=== PATIENT | male | born 1985 | race Hispanic/Latino ===

== ENCOUNTER 2019-04-01 17:25 | Emergency (ER) | payer OTHER, SELFPAY ==
[~2019-04-01 17:25] MED LIST: Iopamidol-370 76% 500 ML 1 ML ONE
[2019-04-01] MEDS ORDERED: Adacel (T-DAP) 0.5 ML SYRINGE ONE (17:38)
[2019-04-01 17:59] LABS: #Basophils 0.1 thou/uL (0.0-0.2); #Eosinphils 0.2 thou/uL (0.0-0.7); #Lymphocytes 1.7 thou/uL (1.20-3.40); #Monocytes 0.7 thou/uL (0.11-0.59); #Neutrophils 10.9 thou/uL (1.40-6.50); %Basophils 0.5 % (0.0-1.0); %Eosinophils 1.5 % (0.0-10.0); %Lymphocytes 12.8 % (21.0-51.0); %Monocytes 4.8 % (0.0-10.0); %Neutrophils 80.5 % (42.0-75.0); Hemoglobin 14.4 g/dL (14.0-18.0); Mean Corpuscular Hemoglobin 29.6 pg (27.0-31.0); Mean Platelet Volume 8.9 fL (7.4-10.4); Platelet Count 170 thou/uL (130-400); RBC Distribution Width 12.3 % (11.5-14.5); Red Blood Cell (RBC) Count 4.87 mill/uL (4.70-6.10); White Blood Cell (WBC) Count 13.6 thou/uL (4.8-10.8)
[2019-04-01 18:07] LABS: INR-International Normal Ratio 1.1; PTT 29.6 SEC (22.9-36.1); Prothrombin Time 14.1 SEC (12.0-14.7)
[2019-04-01 18:20] LABS: ALT (SGPT) 22 U/L (8-55); AST (SGOT) 20 U/L (5-34); Albumin 3.8 g/dL (3.5-5.0); Alkaline Phosphatase 122 U/L (40-110); Anion Gap 13 mmol/L (10-20); BUN (Urea Nitrogen) 17 mg/dL (8.9-20.6); Bilirubin, Total 0.6 mg/dL (0.2-1.2); Calc. Creatinine Clearance 0 mL/min (70-130); Calcium 8.6 mg/dL (7.8-10.44); Carbon Dioxide 23 mmol/L (22-29); Chloride 109 mmol/L (98-107); Estimated GFR-MDRD Greater than 90; Globulin 2.9 g/dL (2.4-3.5); Glucose 148 mg/dL (70-105); Potassium 3.8 mmol/L (3.5-5.1); Protein, Total 6.7 g/dL (6.0-8.3); Sodium 141 mmol/L (136-145)
[2019-04-01] MEDS ORDERED: Fentanyl 100 MCG/2 ML VIAL ONE (18:30)
--- NOTE | 2019-04-01 19:04 | CT ---
EXAM: CT angiogram left forearm with IV contrast and three-dimensional reconstructions PROVIDED CLINICAL HISTORY: Laceration COMPARISON: None FINDINGS: There is cutaneous irregularity and foci of gas within the subcutaneous adipose layer and forearm mus culature involving the radial volar forearm approximately 9 cm proximal to the radiocarpal joint. There is noncircumscribed fluid density present within the subcutaneous adipose layer in this region. These findings immediately overlie superficially the radial artery. There is no evidence for active contrast extravasation. There is no irregularity of the radial artery or evidence for occlusio n or transection. There is normal contrast opacification of the arterial structures of the right forearm throughout their visualized course. The osseous structures demonstrate no evidence for an acute process. IMPRESSION: No evidence for active extravasation or CT evidence for radial arterial injury.
== END 2019-04-01 19:28 | disposition home or self-care (01) ==
LOC: ERS 17:25
DX: S51.812A Laceration without foreign body of left forearm, initial encounter (principal); F17.210 Nicotine dependence, cigarettes, uncomplicated; Z23 Encounter for immunization; W26.9XXA Contact with unspecified sharp object(s), initial encounter
CPT/HCPCS: 36415; 80053; 85025; 85610; 85730; 90471; 90715; 96374; J3010

== ENCOUNTER 2020-04-16 20:56 | Observation (INO) | payer SELFPAY ==
[2020-04-16] MEDS ORDERED: traMADol HCl 50 MG TAB PO PRN (23:13)
[2020-04-16] MEDS ORDERED: Promethazine HCl 25 MG/ML VIAL IM PRN ×2 (23:13)
[2020-04-16] MEDS ORDERED: Cyclobenzaprine 10 MG TAB PO PRN (23:13)
[2020-04-16] MEDS ORDERED: Ondansetron PF 4 MG/2 ML Vial IVP PRN (23:13)
[2020-04-16] MEDS ORDERED: Ondansetron ODT 4 MG TAB PO PRN (23:13)
[2020-04-16] MEDS ORDERED: hydrALAZINE 20 MG/ML VIAL SLOW IVP PRN (23:13)
[2020-04-16] MEDS ORDERED: Morphine 2 MG/ML VIAL SLOW IVP PRN (23:13)
[2020-04-16] MEDS ORDERED: Dextrose 5% in Water 1,000 ML IV PRN (23:13)
[2020-04-16] MEDS ORDERED: Dextrose 50% Abboject 50 ML SYRINGE SLOW IVP PRN (23:13)
[2020-04-16 23:17] VITALS: BMI 24.9
[2020-04-16] MEDS ORDERED: Sodium Chloride 0.9% 1,000 ML IV SCH (23:55)
[2020-04-16] MEDS: CEFAZOLIN 1 GM in Sodium Chloride 0.9% 100 ML IVPB SCH (23:55)
[2020-04-16] MEDS: traMADol HCl 50 MG TAB PO PRN (23:56)
[2020-04-16] MEDS: Acetaminophen 325 MG TAB PO SCH (23:56)
[2020-04-17 04:23] LABS: SARS-CoV-2 MS2 Positive; SARS-CoV-2 N Gene Negative; SARS-CoV-2 S Gene Negative; SARS-CoV-2 by NAA Not Detected (NotDetected); SARS-CoV-2 orf1ab Negative
[2020-04-17] MEDS: Acetaminophen 325 MG TAB PO SCH ×4 (05:37→23:01)
[2020-04-17] MEDS: traMADol HCl 50 MG TAB PO PRN ×2 (05:38→20:24)
--- NOTE | 2020-04-17 05:39 | HP ---
REQUESTING PHYSICIAN: Dr. Webber. ATTENDING SURGEON: Dr. Henry. CONSULTATION: Orthopedics, Dr. Oropeza. HISTORY OF PRESENT ILLNESS: The patient is a 35-year-old man, who was working with an angle blanchard grinder operator when it caught and then kicked back and struck him in his left thigh. The patient went to the emergency department in [place], where he underwent evaluation and examination, was noted to have a laceration to his left medial thigh. Physician there felt that this was a contaminated wound and spoke with Dr. Oropeza, who agreed to evaluate the patient here at our facility. The patient was brought to our facility and it was determined that he would be admitted for observation and evaluated by Orthopedics in the morning for possible formal irrigation and debridement in the operating room. The patient had his tetanus updated and was given Ancef in the emergency department there. ALLERGIES: NONE. CURRENT MEDICATIONS: None. PAST MEDICAL HISTORY: None. SURGICAL HISTORY: Heart surgery as a . SOCIAL HISTORY: The patient drinks rarely. Denies drug use. Smokes approximately one pack of cigarettes per day. He is employed as a manual machinist. REVIEW OF SYSTEMS: A 10-point review of systems is negative as otherwise stated. PHYSICAL EXAMINATION: VITAL SIGNS: Blood pressure 129/87, heart rate 80, respirations 16, oxygen saturation 98% on room air, and temperature 98.3. GENERAL: The patient is resting comfortably in bed. He was asleep when I entered the room but awakened easily with verbal stimuli. His Jaime Coma Scale is 14. HEENT: Unremarkable. LUNGS: Clear to auscultation with good inspiratory and expiratory effort. HEART: Regular rate and rhythm. ABDOMEN: Soft, flat, nontender with active bowel sounds. EXTREMITIES: Neurovascularly intact x4. Left medial thigh has approximately 5 cm laceration that has very minimal capillary ooze. Does appear clean. He is neurovascularly intact distally. There are no labs to review. RADIOGRAPHIC FINDINGS: Views of the left femur showed no radiopaque foreign bodies, fracture, or other osseous lesions involving the femur. ASSESSMENT: Status post laceration to left medial thigh from blanchard grinder operator. PLAN: Plan will be to admit the patient to the surgical floor under observation. We will make him n.p.o., do pain control, pulmonary toilet, gastritis and mechanical VTE prophylaxis. Dr. Oropeza will evaluate the patient and determine management of his wound. The patient will be continued on Ancef at this time. The evaluation, examination, laboratory, and radiographic findings were discussed with Dr. Henry prior to this dictation. Job ID: [id number]
[2020-04-17] MEDS: Ibuprofen 600 MG TAB PO SCH ×3 (06:30→23:01)
--- NOTE | 2020-04-17 08:40 | CON ---
DATE OF CONSULTATION: 04/17/2020 CHIEF COMPLAINT: Thigh laceration. HISTORY OF PRESENT ILLNESS: Mr. Garner is a 35-year-old male, who was using a level vial inside grinder upon a scaffold yesterday at work. He caught the level vial inside grinder and it bound. It jumped back and struck his left thigh. He had a laceration with contamination. He went to the emergency department. He had a superficial washout in the emergency department, but the ER doctor felt that it was too contaminated to do a thorough job. He was transferred to [facility] for operative intervention. He has been resting comfortably overnight. He has been on intravenous antibiotics. Pain is controlled. He is a healthy person. PAST MEDICAL HISTORY: Negative. PAST SURGICAL HISTORY: The patient had a heart surgery as a child. ALLERGIES: NO KNOWN DRUG ALLERGIES. FAMILY MEDICAL HISTORY: Noncontributory. REVIEW OF SYSTEMS: Positive for left thigh pain as per HPI. Otherwise, negative 10-point review of systems. PHYSICAL EXAMINATION: VITAL SIGNS: Temperature is 97.6, pulse is 70, respiratory rate of 14, oxygen saturation 97, blood pressure is 131/73. GENERAL: He is alert, lying supine in no apparent distress. Breathing comfortably. CARDIOVASCULAR: Pulses are palpable and regular. MUSCULOSKELETAL: The patient's left thigh has a 4 cm laceration on the anteromedial thigh. This travels down through the subcutaneous tissue into the muscle belly. The depth is hard to palpate. There is no active bleeding. There is a dressing overlying the wound. He is neurovascularly intact distally. IMPRESSION: Left thigh level vial inside grinder laceration. PLAN: The patient will go to the operating room today for irrigation and debridement of the wound. We will extend the wound and explore to ensure that there is no foreign body. He can have wound closure at that point. He will continue his intravenous antibiotics until surgery and then, we can send him home on a p.o. antibiotic. He will have pain control. He can be discharged to home later today. Job ID: [id number]
[2020-04-17] MEDS: CEFAZOLIN 1 GM in Sodium Chloride 0.9% 100 ML IVPB SCH ×3 (08:53→23:02)
[2020-04-17] MEDS: Famotidine 20 MG TAB PO SCH ×2 (08:56→20:24)
[2020-04-17 09:16] LABS: #Basophils 0.1 thou/uL (0.0-0.2); #Eosinphils 0.3 thou/uL (0.0-0.7); #Lymphocytes 2.1 thou/uL (1.20-3.40); #Monocytes 0.4 thou/uL (0.11-0.59); #Neutrophils 3.2 thou/uL (1.40-6.50); %Eosinophils 4.8 % (0.0-10.0); %Lymphocytes 34.5 % (21.0-51.0); %Monocytes 6.7 % (0.0-10.0); Hemoglobin 14.6 g/dL (14.0-18.0); Mean Corpuscular HGB CONC 33.8 g/dL (32.0-36.0); Mean Corpuscular Hemoglobin 29.5 pg (27.0-31.0); Mean Corpuscular Volume 87.4 fL (78.0-98.0); Mean Platelet Volume 9.5 fL (7.4-10.4); Platelet Count 139 thou/uL (130-400); RBC Distribution Width 12.3 % (11.5-14.5); Red Blood Cell (RBC) Count 4.93 mill/uL (4.70-6.10)
[2020-04-17 09:32] LABS: Anion Gap 13 mmol/L (10-20); BUN (Urea Nitrogen) 15 mg/dL (8.9-20.6); Calc. Creatinine Clearance 145 mL/min (70-130); Calcium 8.3 mg/dL (7.8-10.44); Carbon Dioxide 24 mmol/L (22-29); Chloride 104 mmol/L (98-107); Glucose 248 mg/dL (70-105); Sodium 137 mmol/L (136-145)
[2020-04-17] MEDS ORDERED: Lidocaine 1% PF 5 ML VIAL ONE (10:24)
[2020-04-17] MEDS ORDERED: PROPOFOL 200 MG/20 ML VIAL ONE (10:24)
[2020-04-17] MEDS ORDERED: Dexamethasone 20 MG/5 ML VIAL ONE (10:24)
[2020-04-17] MEDS ORDERED: Ondansetron PF 4 MG/2 ML Vial ONE (10:24)
[2020-04-17] MEDS ORDERED: Famotidine/PF 20 mg/2ml Vial ONE (14:52)
[2020-04-17] MEDS ORDERED: Fentanyl 100 MCG/2 ML VIAL ONE ×2 (16:37→17:41)
[2020-04-17] MEDS ORDERED: Neomycin-Polymyxin 1 ML AMP ONE (16:39)
--- NOTE | 2020-04-17 17:48 | OP ---
DATE OF PROCEDURE: 04/17/2020 OPERATION PERFORMED: Left thigh laceration irrigation and debridement with wound closure. PREOPERATIVE DIAGNOSIS: Left thigh nut grinder injury. POSTOPERATIVE DIAGNOSIS: Left thigh nut grinder injury. COMPLICATIONS: None. ESTIMATED BLOOD LOSS: Minimal. IMPLANTS: None. INDICATIONS: Mr. Garner is a 35-year-old male who has injured his left thigh with a nut grinder. He has a deep laceration. This was contaminated. He was indicated for irrigation and debridement with closure. Risks were reviewed in detail. Primary risks are of infection. He is aware of this. DESCRIPTION OF PROCEDURE: Mr. Garner was identified in the preoperative holding area. His correct extremity was marked. He was carried to the operating room. He was positioned supine. General anesthesia was induced. A multidisciplinary time-out was performed. The left leg was prepped and draped in sterile fashion. We began the procedure with trimming the skin edges sharply. We worked deeply down through the subcutaneous tissue to the muscle. We irrigated the wounds thoroughly. We removed multiple small fragments of nut grinder material. Again, we thoroughly irrigated and debrided sharply. We went down into the muscle belly. After final irrigation, we loosely closed with 3-0 nylon suture. A sterile dressing was applied. The patient was taken to the recovery room in good condition. Job ID: [id number]
[2020-04-18] MEDS: Ibuprofen 600 MG TAB PO SCH (05:31)
[2020-04-18] MEDS: Acetaminophen 325 MG TAB PO SCH (05:31)
[2020-04-18] MEDS: Famotidine 20 MG TAB PO SCH (08:18)
[2020-04-18] MEDS: CEFAZOLIN 1 GM in Sodium Chloride 0.9% 100 ML IVPB SCH (08:19)
--- NOTE | 2020-04-18 10:39 | PRG ---
DATE OF SERVICE: 04/18/2020 SUBJECTIVE: Domo is a 35-year-old male, postop day 1, from an irrigation, debridement, and primary closure of left thigh laceration secondary to a bone grinder. He is doing relatively well. His pain is better and he is looking forward to being discharged after completing his antibiotic treatment. He otherwise has no complaints and is ready to be discharged. OBJECTIVE: VITAL SIGNS: Temperature 97.7, pulse 70, respiratory rate 14, blood pressure 147/70. GENERAL: He is alert and oriented to person, place, time, and situation. EXTREMITIES: There is no strike through at the dressing. He is neurovascularly intact in the involved extremity. IMPRESSION: A 35-year-old male, postop day 1, left thigh transverse laceration, status post irrigation, debridement, and near completion of antibiotic IV treatment. PLAN: The patient is stable for discharge from orthopedic standpoint. Weightbearing as tolerated. Advised him to keep his incision clean, dry, and change it daily. Stitches to be out in 10 to 12 days. Follow up in the [facility]. Job ID: [id number]
[2020-04-18 11:00] VITALS: BP 124/78; TEMP 97.5
--- NOTE | 2020-04-25 06:02 | PQF ---
[facility] POST DISCHARGE CLINICAL DOCUMENTATION IMPROVEMENT CLARIFICATION FORM Todays Date: 04/25/20 Patients Name ERIS LENZ Admit Date 04/16/20 Disch Date 04/18/20 Sales And Marketing Coordinator Name Merlin Gabriel Email: [email or web address] Cell: [phone] To be completed by Sales And Marketing Coordinator: Present Clinical Indicators - Signs / Symptoms Results and Location in Medical Record [ ] Documentation of: [ ] [ ] Documentation of: [ ] [ ] Documentation of: [ ] [ ] Documentation of: [ ] [ ] Risks [ ] [ ] [ ] Treatment [ ] Left thigh laceration jose carrillo (OP report) Query for size of laceration repair (cm) [ ] [ ] To be completed by Physician: DR. HASEEB RUSHING The documentation in this patients record requires clarification to ensure coding compliance and accuracy. Check the appropriate box and include in your discharge summary. [ ] 10 cm length [ ] [ ] [ ] Please check this box if this does not apply to this patient [ ] Unable to determine [ ] Other diagnosis: Review the following information and exercise your independent professional judgment in responding to the clarification. Based upon the clinical findings, risk factors, and treatment, please clarify if you are treating one of the above probable or suspected diagnoses. Physician Signature: Date Time MTDD
== END 2020-04-18 12:17 | disposition home or self-care (01) ==
LOC: ERS 20:56 → SURG B 21:40 → INTOOBSV 21:40
PROVIDERS: ADMIT Surgery; ATTEND Surgery
PROC: 0KQR0ZZ Repair Left Upper Leg Muscle, Open Approach (ICD-10-PCS; principal; 2020-04-17)
DX: S76.922A Laceration of unspecified muscles, fascia and tendons at thigh level, left thigh, initial encounter (principal); S71.122A Laceration with foreign body, left thigh, initial encounter; F17.210 Nicotine dependence, cigarettes, uncomplicated; Z20.828 Contact with and (suspected) exposure to other viral communicable diseases; W29.8XXA Contact with other powered hand tools and household machinery, initial encounter
CPT/HCPCS: 36415; 80048; 85025; 87635; 94760; 96365; 96366; 96375; G0378; J0690; J1100; J2270; J2405; J2704; J3010; J3490; S0028; U0003